=== PATIENT | female | born 1975 ===

== ENCOUNTER 2020-05-27 20:19 | Inpatient (IN) | payer OTHER, SELFPAY ==
--- NOTE | ~2020-05-27 | CT_ITS ---
EXAMINATION: CT ANGIOGRAM OF THE CHEST WITH AND WITHOUT CONTRAST (CT PULMONARY ANGIOGRAM FOR PE) CLINICAL INFORMATION: Reason for Exam high ddimer; COVID positive COMPARISON: Radiograph 05/27/2020 TECHNIQUE: Prior to contrast administration, noncontrast localization images were obtained. Subsequently, multidetector volumetric imaging was performed from the thoracic inlet to below the diaphragms following the administration of 65 mL Omnipaque 350 intravenous contrast. No contrast reaction reported Sagittal, coronal, and MIP oblique sagittal reformatted images were obtained on the CT workstation, uploaded to PACS, and reviewed. This CT examination was performed using dose optimization techniques as appropriate, variously including the following: *Automated exposure control *Adjustment of mA and/or kV according to patient size (this includes techniques or standardized protocols for targeted exams where dose is matched to indication/reason for exam; i.e. extremities or head) *Use of iterative reconstruction technique Total exam dose-length product 374 mGy-cm FINDINGS: QUALITY OF STUDY/CONTRAST BOLUS: Satisfactory. PULMONARY ARTERIES: No central or segmental pulmonary emboli. THORACIC AORTA: No aneurysm or dissection. LUNG: The central airways are patent. Multifocal consolidation seen throughout both lungs. This has diffuse patchy appearance. PLEURA: No pleural effusion or pneumothorax. MEDIASTINUM: Normal heart size. No pericardial effusion. No hilar or mediastinal lymphadenopathy. No evidence of septal bowing or right heart strain. CHEST WALL/AXILLA: No axillary or internal mammary lymphadenopathy. OSSEOUS STRUCTURES: No acute or suspicious osseous abnormality. UPPER ABDOMEN: Cholecystectomy. No reflux of contrast into the hepatic veins to suggest elevated right heart pressures. CT/CT angio chest PE protocol IMPRESSION: 1. No pulmonary embolism. 2. Multifocal airspace opacity throughout both lungs, consistent with the clinical history of Covid. VTE: negative
--- NOTE | ~2020-05-27 | XR_ITS ---
EXAMINATION: XR CHEST CLINICAL INFORMATION: Chest pain and dyspnea. Positive for COVID COMPARISON: 08/30/2016 TECHNIQUE: Frontal view of the chest was obtained. FINDINGS: New multifocal infiltrates are present in both lungs consistent with Covid pulmonary disease. The heart size is normal. No pleural effusions are seen. XR/XR chest 1V IMPRESSION: Multifocal pulmonary infiltrates consistent with multifocal pneumonia, most likely Covid 19.
[2020-05-27 20:21] VITALS: BP 101/64; PULSE 111; RESP 26; TEMP 38.8; O2SAT 95; BMI 39.6
--- NOTE | 2020-05-27 20:27 | ECG_ITS ---
Test Reason : CHEST PAIN Blood Pressure : / mmHG Vent. Rate : 104 BPM Atrial Rate : 104 BPM P-R Int : 160 ms QRS Dur : 078 ms QT Int : 318 ms P-R-T Axes : 040 059 043 degrees QTc Int : 418 ms Sinus tachycardia Low voltage QRS Borderline ECG When compared to the previous EKG of Premature ventricular complexes not present Referred By: Xavier Jorge Electronically Signed By:Brien Pinedo
[2020-05-27 20:38] VITALS: O2SAT 93
--- NOTE | 2020-05-27 20:38 | ED.SOB ---
HPI - SOB/Dyspnea General Chief Complaint: Chest Pain Stated Complaint: resp distress chest pain COVID Time Seen by Provider: 05/27/20 20:34 Source: patient Mode of arrival: ambulatory Limitations: no limitations History of Present Illness HPI Narrative: Patient with symptomatic with dry cough and shortness of breath since 05/13 tested for COVID on 05/18 and was positive for last 5 days patient has been feeling increased shortness of breath dry cough and chest tightness other family members also positive with COVID patient does have low-grade fever not able to eat much for last 3 days saturating 91%- 93% on 2 L while resting on arrival patient's blood pressure was 101/64 pulse rate 111 respiratory rate 26 and temperature of 101.9 degrees patient feels exhausted MD elicited complaint: shortness of breath and cough Onset (ago): day(s) (5) Severity: moderate Relieving factors: oxygen Related Data Allergies Allergy/AdvReac Type Severity Reaction Status Date / Time No Known Allergies Allergy Unverified 12/24/19 15:46 [No Known Allergies*] Review of Systems Review of Systems: Constitutional : No Weight loss, ++ Fever, No Chills ENT/Mouth : No sore throat, No Rhinorrhea Eyes: No Eye Pain, No Swelling Cardiovascular : No Chest Pain, no palpitations Respiratory : ++Cough, No Sputum, ++ shortness of breath Gastrointestinal : no Nausea, No Vomiting, No Diarrhea, No abdominal Pain, no black stools Genitourinary : No Dysuria, No Urinary Frequency Musculoskeletal : No joint pain, No Myalgias, No Joint Swelling Skin : No Skin Lesions, No rash Neuro : No Weakness, No Numbness, No Dizziness, No Headache Psych : No Anxiety/Panic, No Depression Heme/Lymph: No Bruising, No Lymphadenopathy Endocrine : No Polyuria, No Polydipsia All other systems reviewed and are negative PMFSH Past Medical History Medical History Hypothyroidism Social History Social History Alcohol intake: never Smoking Status: Never smoker Smoked in Last 30 Days: No Use of substances other than those prescribed or required for medical reasons: No Advance Directives: No Advance Directives Information Provided: No Physical Exam Vital Signs: Vital Signs: Last Vital Signs Temp 100 F 05/28/20 00:04 Pulse 105 H 05/28/20 01:15 Resp 24 H 05/28/20 01:15 BP 101/56 L 05/28/20 00:04 Pulse Ox 96 05/28/20 00:04 Body Mass Index 39.6 Const: General: well developed and ill appearing Nutritional Appearance: average body habitus Orientation/consciousness: patient oriented x3 HENMT: Head: Yes normocephalic and Yes atraumatic Ears: hearing grossly normal bilaterally Eyes: General: appearance normal, both eyes and all related structures Neck: Neck: Yes full ROM, Yes no lymphadenopathy and Yes no JVD Chest: Chest palpation & inspection: normal inspection of the chest and normal palpation of entire chest wall Resp: Effort & Inspection: normal respiratory effort Auscultation: crackles, rales, no rhonchi, no wheezes and diminished lung sounds Cardio: Rate: tachycardic Rhythm: regular rhythm Heart sounds: S1 normal heart sound present and S2 normal heart sound present Peripheral pulses: Peripheral pulses 2+ throughout GI: Inspection: Yes normal to inspection Palpation (GI): Soft to palpation and nontender Auscultation: normal bowel sounds : General: Yes no CVA tenderness Back/Spine/Pelvis: Back: no CVA tenderness Thoracic/Lumbar Spine: thoracic and lumbar spine normal to inspection Skin: General skin exam: no rashes or lesions noted Neuro: General: patient oriented x3 and no focal motor deficits Extrem: General: Yes normal to inspection, Yes full ROM, Yes no calf tenderness and Yes pedal edema MDM - SOB/Dyspnea MDM Narrative Medical decision making narrative: Patient with COVID-19 pneumonia with hypoxia will admit patient for supportive treatment oxygen Decadron prophylactic antibiotics Differential Diagnosis Differential diagnosis: Likely pneumonia Medical Records Attestation: I reviewed the patient's medical records. Lab Data Attestation: I reviewed the patient's lab results. Result diagrams: 05/27/20 20:45 05/27/20 20:45 Labs: Lab Results 05/27/20 05/27/20 05/27/20 Range/Units 20:45 20:45 20:45 WBC 5.6 (4.8-10.8) X10*3/uL RBC 3.28 L (4.20-5.50) X10*6/uL Hgb 8.3 L (12.0-16.0) g/dl Hct 26.7 L (37-47) % MCV 81.4 (80-98) fL MCH 25.3 L (27.0-33.0) pg MCHC 31.1 (31.0-35.0) g/dl RDW 22.7 H (11.0-16.0) % Plt Count 242 (160-400) X10*3/uL MPV 9.5 (9.4-12.3) fL Immature Gran % (Auto) 0.4 (0.0-0.4) % Neut % (Auto) 81.0 H (45-73) % Lymph % (Auto) 13.1 L (20-40) % [place] % (Auto) 5.3 (2-11) % Eos % (Auto) 0.0 (0-4) % Baso % (Auto) 0.2 (0-2) % Lymph # (Auto) 0.7 L (1.2-4.9) X10*3/uL [place] # (Auto) 0.3 (0.1-1.2) X10*3/uL Eos # (Auto) 0.0 (0.0-0.4) X10*3/uL Baso # (Auto) 0.0 (0.0-0.2) X10*3/uL Abs Immat Gran (auto) 0.02 (0.00-0.03) X10*3/uL Absolute Neuts (auto) 4.6 (2.0-8.3) X10*3/uL Absolute Nucleated RBC 0.000 (0.0-0.012) X10*3/uL Nucleated RBC % (auto) 0.0 (0.0-0.2) /100WBC PT 14.0 H (10.8-13.0) SEC INR 1.2 H (0.9-1.1) APTT 31.0 (24.1-38.0) SEC D-Dimer 320 NG/ML Sodium 139 (135-145) mmol/L Potassium 4.1 (3.3-5.1) mmol/L Chloride 104 (96-108) mmol/L Carbon Dioxide 24 (22-29) mmol/L Anion Gap 15 (12-20) BUN 9 (9-16) mg/dL Creatinine 0.76 (0.5-1.4) mg/dL Estim Creat Clear Calc 100.6 Estimated GFR > 60 Random Glucose 106 (60-115) mg/dL Lactic Acid (0.5-2.0) mmol/L Calcium 8.0 L (8.4-10.2) mg/dL Ferritin (10-250) ng/mL Lactate Dehydrogenase 427 H (122-220) U/L Troponin I High Sens (<3.5-17.0) ng/L C-Reactive Protein 15.53 H (< or = 0.50) mg/dL 05/27/20 05/27/20 05/27/20 Range/Units 20:45 20:45 20:46 WBC (4.8-10.8) X10*3/uL RBC (4.20-5.50) X10*6/uL Hgb (12.0-16.0) g/dl Hct (37-47) % MCV (80-98) fL MCH (27.0-33.0) pg MCHC (31.0-35.0) g/dl RDW (11.0-16.0) % Plt Count (160-400) X10*3/uL MPV (9.4-12.3) fL Immature Gran % (Auto) (0.0-0.4) % Neut % (Auto) (45-73) % Lymph % (Auto) (20-40) % [place] % (Auto) (2-11) % Eos % (Auto) (0-4) % Baso % (Auto) (0-2) % Lymph # (Auto) (1.2-4.9) X10*3/uL [place] # (Auto) (0.1-1.2) X10*3/uL Eos # (Auto) (0.0-0.4) X10*3/uL Baso # (Auto) (0.0-0.2) X10*3/uL Abs Immat Gran (auto) (0.00-0.03) X10*3/uL Absolute Neuts (auto) (2.0-8.3) X10*3/uL Absolute Nucleated RBC (0.0-0.012) X10*3/uL Nucleated RBC % (auto) (0.0-0.2) /100WBC PT (10.8-13.0) SEC INR (0.9-1.1) APTT (24.1-38.0) SEC D-Dimer NG/ML Sodium (135-145) mmol/L Potassium (3.3-5.1) mmol/L Chloride (96-108) mmol/L Carbon Dioxide (22-29) mmol/L Anion Gap (12-20) BUN (9-16) mg/dL Creatinine (0.5-1.4) mg/dL Estim Creat Clear Calc Estimated GFR Random Glucose (60-115) mg/dL Lactic Acid 1.1 (0.5-2.0) mmol/L Calcium (8.4-10.2) mg/dL Ferritin 121 (10-250) ng/mL Lactate Dehydrogenase (122-220) U/L Troponin I High Sens < 3.5 (<3.5-17.0) ng/L C-Reactive Protein (< or = 0.50) mg/dL ECG Data Attestation: I personally reviewed and interpreted this ECG as follows: Interpretation: Sinus tachycardia with ventricular rate 104 normal axis normal intervals no acute ST T wave changes impression no acute ischemia
[2020-05-27 20:58] LABS: MANUAL DIFF FLAG NO
[2020-05-27 21:05] LABS: Basophils Percent Auto 0.2 % (0-2); Hematocrit 26.7 % (37-47); Hemoglobin 8.3 g/dl (12.0-16.0); Imm Gran Abs Auto 0.02 X10*3/uL (0.00-0.03); Imm Gran Pct Auto 0.4 % (0.0-0.4); Lymphocytes Absolute Auto 0.7 X10*3/uL (1.2-4.9); Lymphocytes Percent Auto 13.1 % (20-40); Mean Corpuscular HGB Conc 31.1 g/dl (31.0-35.0); Mean Corpuscular Hemoglobin 25.3 pg (27.0-33.0); Mean Corpuscular Volume 81.4 fL (80-98); Mean Platelet Volume 9.5 fL (9.4-12.3); Monocytes Absolute Auto 0.3 X10*3/uL (0.1-1.2); Monocytes Percent Auto 5.3 % (2-11); Neutrophils Absolute Auto 4.6 X10*3/uL (2.0-8.3); Platelet Count 242 X10*3/uL (160-400); Red Blood Count 3.28 X10*6/uL (4.20-5.50); Red Cell Distribution Width 22.7 % (11.0-16.0); White Blood Count 5.6 X10*3/uL (4.8-10.8)
[2020-05-27 21:06] LABS: INTERNATIONAL NORM RATIO 1.2 (0.9-1.1)
[2020-05-27 21:09] LABS: D Dimer 320 NG/ML
[2020-05-27 21:24] LABS: Lactic Acid 1.1 mmol/L (0.5-2.0)
[2020-05-27 21:34] LABS: Troponin-I High Sensitivity < 3.5 ng/L (<3.5-17.0)
[2020-05-27 21:43] LABS: Anion Gap 15 (12-20); Blood Urea Nitrogen 9 mg/dL (9-16); C Reactive Protein 15.53 mg/dL (< or = 0.50); Carbon Dioxide 24 mmol/L (22-29); Chloride 104 mmol/L (96-108); Creatinine Clr Calc Pharmacy 100.6; Estimated Glomerular Filt Rate > 60; Glucose Random 106 mg/dL (60-115); Lactate Dehydrogenase 427 U/L (122-220); Potassium 4.1 mmol/L (3.3-5.1); Sodium 139 mmol/L (135-145)
[2020-05-27] MEDS: Albuterol Sulfate 90 MCG 8 GM INHALER 4 PUFF INHALE (21:59)
[2020-05-27 22:00] VITALS: BP 102/63; PULSE 106; RESP 24; O2SAT 94
[2020-05-27] MEDS: cefTRIAXone sodium 1 GM in 0.9 % Sodium Chloride 50 ML IV (22:00)
[2020-05-27 22:13] VITALS: BP 115/69; PULSE 104; RESP 24; O2SAT 93
[2020-05-27 22:28] VITALS: BP 108/65; PULSE 103; RESP 20; O2SAT 93
[2020-05-27] MEDS: Doxycycline Hyclate 100 MG in 0.9 % Sodium Chloride 250 ML 166.67 MG IV (22:40)
[2020-05-27 22:58] VITALS: BP 107/62; PULSE 108; RESP 25; O2SAT 95
[2020-05-27 23:28] LABS: Ferritin 121 ng/mL (10-250)
[2020-05-28] MEDS: 0.9 % Sodium Chloride 1,000 ML 999 ML IVCONT
[2020-05-28 00:04] VITALS: BP 101/56; PULSE 105; RESP 20; TEMP 37.7; O2SAT 96
--- NOTE | 2020-05-28 00:10 | PM.IMHP ---
History of Present Illness Date of Service: 05/28/20 Chief Complaint: Shortness of breath 44-year-old female a past medical history of hypothyroidism, anemia, GERD presented to the hospital with a chief complaint of shortness of breath. Patient reports that he our exposure to COVID-19 virus. Mentioned per before MRSA positive COVID-19. Patient denies any fever chills. Mentions he has cough denies any sputum production. Any chest pain palpitations. Denies any numbness tingling. Denies any loss of sense of smell. Denies any GI or symptoms. Review of all other systems is negative except mentioned above ER course: Per ER team patient was saturating at 91% on 2 L. Chest x-ray showed bilateral infiltrates. Noted mildly elevated D-dimer. Given ceftriaxone azithromycin and dexamethasone core admitted to the hospital for further management. [facility] Medical History Hypothyroidism Social History Alcohol intake: never Smoking Status: Never smoker Smoked in Last 30 Days: No Use of substances other than those prescribed or required for medical reasons: No Advance Directives: No Advance Directives Information Provided: No Meds Allergies Allergy/AdvReac Type Severity Reaction Status Date / Time No Known Allergies Allergy Verified 05/28/20 01:53 [No Known Allergies*] Active Medications: Current Medications Generic Name Dose Route Start Last Admin Trade Name Freq PRN Reason Stop Dose Admin Acetaminophen 650 mg 05/28/20 00:04 Acetaminophen 325 Mg Tablet PO Q6H PRN Pain, Mild (Pain Scale 1-3) Azithromycin 500 mg 05/28/20 00:15 Azithromycin 500 Mg Tablet PO Q24H BRENDAN Dexamethasone 6 mg 05/28/20 09:00 Dexamethasone 6 Mg Tablet PO DAILY BRENDAN Enoxaparin Sodium 40 mg 05/28/20 00:15 Enoxaparin Sodium 40 Mg/0.4 Ml Syringe SUBCUT Q24H BRENDAN Sodium Chloride 1,000 mls @ 999 mls/hr 05/27/20 23:30 Ns IVCONT 05/28/20 00:30 .Q1H1M BRENDAN Ceftriaxone Sodium 1 gm/ 50 mls @ 100 mls/hr 05/28/20 00:15 Sodium Chloride IV Q24H [facility] Sodium Chloride 3 ml 05/28/20 08:00 0.9 % Sodium Chloride Flush 3 Ml Syringe IVFLUSH QSHIFT [facility] Home Medications Medication Instructions Recorded Confirmed Last Taken Type levothyroxine 1 tab PO DAILY 05/28/20 05/28/20 05/27/20 History Physical Exam Vital Signs and Narrative: Vital Signs: Last Vital Signs Temp 101.9 F H 05/27/20 20:21 Pulse 108 H 05/27/20 22:58 Resp 25 H 05/27/20 22:58 BP 107/62 05/27/20 22:58 Pulse Ox 95 05/27/20 22:58 Body Mass Index 39.6 Gen: Appears be in no acute distress HEENT: NCAT, Moist mucosa. Pulmonary: Course breath sounds, fair air entry CVS: Normal S1-S2 Abdomen: BS+, Soft, Nontender Extremities: Warm well perfused Neuro: Alert and awake. Results Labs CBC and Chem 7: 05/27/20 20:45 05/27/20 20:45 Labs: Laboratory Results - last 24 hr 05/27/20 05/27/20 05/27/20 20:45 20:45 20:45 MCV 81.4 MCH 25.3 L MCHC 31.1 RDW 22.7 H Plt Count 242 MPV 9.5 Immature Gran % (Auto) 0.4 Neut % (Auto) 81.0 H Lymph % (Auto) 13.1 L [place] % (Auto) 5.3 Eos % (Auto) 0.0 Baso % (Auto) 0.2 Lymph # (Auto) 0.7 L [place] # (Auto) 0.3 Eos # (Auto) 0.0 Baso # (Auto) 0.0 Abs Immat Gran (auto) 0.02 Absolute Neuts (auto) 4.6 Absolute Nucleated RBC 0.000 Nucleated RBC % (auto) 0.0 PT 14.0 H INR 1.2 H APTT 31.0 D-Dimer 320 Anion Gap 15 Estim Creat Clear Calc 100.6 Estimated GFR > 60 Random Glucose 106 Lactic Acid Calcium 8.0 L Ferritin Lactate Dehydrogenase 427 H Troponin I High Sens C-Reactive Protein 15.53 H 05/27/20 05/27/20 05/27/20 20:45 20:45 20:46 MCV MCH MCHC RDW Plt Count MPV Immature Gran % (Auto) Neut % (Auto) Lymph % (Auto) [place] % (Auto) Eos % (Auto) Baso % (Auto) Lymph # (Auto) [place] # (Auto) Eos # (Auto) Baso # (Auto) Abs Immat Gran (auto) Absolute Neuts (auto) Absolute Nucleated RBC Nucleated RBC % (auto) PT INR APTT D-Dimer Anion Gap Estim Creat Clear Calc Estimated GFR Random Glucose Lactic Acid 1.1 Calcium Ferritin 121 Lactate Dehydrogenase Troponin I High Sens < 3.5 C-Reactive Protein Imaging Radiologist's Impressions: Impressions Chest X-Ray 05/27/20 20:27 IMPRESSION: Multifocal pulmonary infiltrates consistent with multifocal pneumonia, most likely Covid 19. Assessment and Plan (1) Pneumonia due to COVID-19 virus: Status: Acute At 44-year-old female with a past medical history of hypothyroidism, GERD, anemia presented to the hospital with a chief complaint of shortness of breath. Patient has exposed to COVID-19.; noted to have COVID-19 pneumonia. Admitted to the hospital for further management. COVID-19 pneumonia: Patient currently saturating 90-92% on 2 L of oxygen. Not in distress. Continue supplemental oxygen. Continue ceftriaxone, azithromycin, dexamethasone. Id consult. Noted elevated D-dimer-CT PE pending. For all other chronic conditions, home medications will be continued once reconciled. DVT prophylaxis: Lovenox Code status: Full code
[2020-05-28] MEDS: Azithromycin 500 MG TABLET PO (00:56)
[2020-05-28 01:15] VITALS: PULSE 105; RESP 24
[2020-05-28 01:17] LABS: COVID-19 Test Positive (Negative)
[2020-05-28] MEDS: iohexoL 350 MG/ML 100 ML INFUS..BTL 65 ML IV (02:36)
--- NOTE | 2020-05-28 06:44 | PC.NURSE ---
PATIENT ARRIVED TO ED COVID+, TESTED ELSEWHERE LAST WEEK. PATIENT MEDICATED ORDERED, AND AMBULATES WITH STEADY GAIT. PATIENT ABLE TO MAKE NEEDS KNOWN TO THIS RN. SLEEPING AT THIS TIME. WILL CONTINUE TO MONITOR.
[2020-05-28 07:24] LABS: Hematocrit 26.7 % (37-47); Hemoglobin 8.1 g/dl (12.0-16.0); Imm Gran Abs Auto 0.01 X10*3/uL (0.00-0.03); Imm Gran Pct Auto 0.3 % (0.0-0.4); Lymphocytes Absolute Auto 0.3 X10*3/uL (1.2-4.9); Lymphocytes Percent Auto 8.7 % (20-40); MANUAL DIFF FLAG SCAN; Mean Corpuscular HGB Conc 30.3 g/dl (31.0-35.0); Mean Corpuscular Hemoglobin 25.2 pg (27.0-33.0); Mean Corpuscular Volume 82.9 fL (80-98); Mean Platelet Volume 9.5 fL (9.4-12.3); Monocytes Absolute Auto 0.1 X10*3/uL (0.1-1.2); Monocytes Percent Auto 3.3 % (2-11); Neutrophils Absolute Auto 3.4 X10*3/uL (2.0-8.3); Neutrophils Percent Auto 87.7 % (45-73); Platelet Count 236 X10*3/uL (160-400); Red Blood Count 3.22 X10*6/uL (4.20-5.50); Red Cell Distribution Width 22.7 % (11.0-16.0); SCAN SMEAR FLAG 1; White Blood Count 3.9 X10*3/uL (4.8-10.8)
[2020-05-28 07:49] LABS: Anion Gap 13 (12-20); Blood Urea Nitrogen 9 mg/dL (9-16); Calcium 7.8 mg/dL (8.4-10.2); Carbon Dioxide 25 mmol/L (22-29); Chloride 108 mmol/L (96-108); Creatinine Clr Calc Pharmacy 114.1; Estimated Glomerular Filt Rate > 60; Glucose Random 146 mg/dL (60-115); Magnesium 2.1 mg/dL (1.6-2.6); Potassium 4.1 mmol/L (3.3-5.1); Sodium 142 mmol/L (135-145)
[2020-05-28 07:56] LABS: SLIDE REVIEW VERIFIED
[2020-05-28] MEDS: dexAMETHasone 6 MG TABLET PO (08:24)
[2020-05-28] MEDS: Enoxaparin Sodium 40 MG/0.4 ML SYRINGE SUBCUT (08:24)
[2020-05-28] MEDS: Levothyroxine Sodium 112 MCG TABLET PO (08:24)
[2020-05-28] MEDS: Levothyroxine Sodium 25 MCG TABLET PO (08:24)
[2020-05-28] MEDS: 0.9 % Sodium Chloride Flush 3 ML SYRINGE IVFLUSH ×2 (08:25→18:14)
[2020-05-28 09:21] LABS: Alanine Aminotransferase 50 U/L (0-31); Albumin Level 3.8 g/dL (3.5-5.0); Alkaline Phosphatase 95 U/L (39-117); Aspartate Amino Transferase 43 U/L (5-31); Bilirubin Direct < 0.2 mg/dL (0.0-0.5); Bilirubin Total 0.3 mg/dL (0.0-1.0); Total Protein 6.9 g/dL (6.5-8.0)
[2020-05-28 09:45] LABS: Procalcitonin 0.26 ng/mL
--- NOTE | 2020-05-28 10:52 | HO.PM.IMPN ---
Subjective Subjective Date of Service: 05/28/20 Interval History: seen and examined this AM in the ED feels tired reports her test returned positive on 05/18 (tested several days before that) ROS General - +fevers; fatigue Cardiovascular - no chest pain Respiratory - +sob, + cough Abdominal- no abdominal pain, nausea, vomiting, diarrhea Physical Exam Vital Signs: Vital Signs: Last Vital Signs Temp 100 F 05/28/20 00:04 Pulse 105 H 05/28/20 01:15 Resp 24 H 05/28/20 01:15 BP 101/56 L 05/28/20 00:04 Pulse Ox 96 05/28/20 00:04 Body Mass Index 39.6 Const: Other: General - no acute distress, appears comfortable Cardiovascular - regular rate and rhythm, S1-S2 Lungs - dim, no distress at rest; tachypnea with exertion Abdomen - soft, nontender, no rebound or guarding Extremities - no edema bilaterally Neuro - awake and alert, no focal deficits Objective Data Current Medications Generic Name Dose Route Start Last Admin Trade Name Earlq PRN Reason Stop Dose Admin Acetaminophen 650 mg 05/28/20 00:04 Acetaminophen 325 Mg Tablet PO Q6H PRN Pain, Mild (Pain Scale 1-3) Azithromycin 500 mg 05/28/20 01:00 05/28/20 00:56 Azithromycin 500 Mg Tablet PO 500 mg Q24H BRENDAN Administration Dexamethasone 6 mg 05/28/20 09:00 05/28/20 08:24 Dexamethasone 6 Mg Tablet PO 6 mg DAILY BRENDAN Administration Enoxaparin Sodium 40 mg 05/28/20 09:00 05/28/20 08:24 Enoxaparin Sodium 40 Mg/0.4 Ml Syringe SUBCUT 40 mg Q24H BRENDAN Administration Ceftriaxone Sodium 1 gm/ 50 mls @ 100 mls/hr 05/28/20 21:00 Sodium Chloride IV Q24H BRENDAN Levothyroxine Sodium 112 mcg 05/28/20 06:32 05/28/20 08:24 Levothyroxine Sodium 112 Mcg Tablet PO 112 mcg DAILY@0600 BRENDAN Administration Levothyroxine Sodium 25 mcg 05/28/20 06:45 05/28/20 08:24 Levothyroxine Sodium 25 Mcg Tablet PO 25 mcg DAILY@0600 BRENDAN Administration Sodium Chloride 3 ml 05/28/20 08:00 05/28/20 08:25 0.9 % Sodium Chloride Flush 3 Ml Syringe IVFLUSH 3 ml QSHIFT BRENDAN Administration Labs CBC & Chem 7: 05/28/20 06:58 05/28/20 06:58 Assessment and Plan (1) Pneumonia due to COVID-19 virus: Status: Acute Assessment and Plan: This is a 44 yo F with a PMH of hypothyroid who reports she tested positive for covid on 05/28/2020 (symptoms about 4-5 days prior to this) and now presents with worsening respiratory symptoms. 1. COVID 19 leading to viral sepsis, POA met sepsis criteria with tachycardia + fevers + tachypnea On 2L; no dcumented saturations below 90 Decadron 6mg IV daily Empiric Doxycycline ID in put 2. Hypothyroidism synthroid Full Code DVT pptx, Lovenox
[2020-05-28] MEDS: Doxycycline Hyclate 100 MG in 0.9 % Sodium Chloride 250 ML 166.67 MG IV (11:48)
[2020-05-28] MEDS: Acetaminophen 325 MG TABLET 650 MG PO (11:49)
[2020-05-28 14:11] VITALS: BP 118/74; PULSE 83; RESP 18; TEMP 37; O2SAT 94
--- NOTE | 2020-05-28 16:54 | PC.NURSE ---
Pt alert, rr even, speaking in full sentences. Skin is pwdi, and she is in nad. She has been ambulating to and from BR without difficulty, and 02 sats remaining in the high 90's. Pt offers no complaints at this time. Dr Kerr made aware pt condition.
[2020-05-28 18:12] VITALS: BP 121/76; PULSE 87; RESP 16; TEMP 37.2; O2SAT 87
[2020-05-28 18:13] VITALS: O2SAT 96
--- NOTE | 2020-05-28 18:17 | PC.NURSE ---
Pt reports substernal CP described as sharp radiating to back, reproducible, worsening with cough. Pts vs wnl, skin w/p/d, rr even and unlabored, no apparent distress noted. Dr. Kerr aware pt status and requested additional PRNS.
[2020-05-28] MEDS: oxyCODONE HCl Immed Release 5 MG TABLET PO (18:45)
[2020-05-28 22:00] VITALS: BP 93/49; PULSE 83; RESP 22; O2SAT 91
--- NOTE | 2020-05-28 22:50 | ED_ITS ---
HPI - Chest Pain General Chief Complaint: Chest Pain Stated Complaint: resp distress chest pain COVID Time Seen by Provider: 05/27/20 20:34 Source: patient Mode of arrival: ambulatory Limitations: no limitations Related Data Home Medications Medication Instructions Recorded Confirmed levothyroxine 1 tab PO DAILY 05/28/20 05/28/20 Allergies Allergy/AdvReac Type Severity Reaction Status Date / Time No Known Allergies Allergy Verified 05/28/20 01:53 [No Known Allergies*] [facility] Past Medical History Medical History (Updated 05/29/20 @ 18:21 by John Monroy RN) Gallbladder & bile duct stone with obstruction Hypothyroidism Kidney calculi Surgical History (Updated 05/29/20 @ 18:21 by John Monroy RN) H/O breast biopsy Social History Social History Household Members: Spouse and Children Housing: House Do you presently have visiting nurse or other home services: No Alcohol intake: never Smoking Status: Never smoker Smoked in Last 30 Days: No Patient Interested in Nicotine Replacement: No Patient Given Instructions on How to Stop Smoking: No Second Hand Smoke Exposure: No Use of substances other than those prescribed or required for medical reasons: No Currently Displaying Signs/Symptoms of Drug Intoxication Withdrawal: No Have you been hit, kicked, punched, or otherwise hurt by someone within the past year? If so, by whom?: No Do you feel safe in your current relationship?: Yes Is there a partner from a previous relationship who is making you feel unsafe now?: No Are you made to feel afraid or neglected: No Advance Directives: No Advance Directives Information Provided: No Do you have thoughts of harming others: None Do you have a plan to hurt others: No Plan Recently lost weight without trying: No Physical Exam Vital Signs: Vital Signs: Last Vital Signs Temp 98 F 05/30/20 00:00 Pulse 65 05/30/20 00:00 Resp 20 05/30/20 00:00 BP 118/74 05/30/20 00:00 Pulse Ox 97 05/30/20 00:00 Body Mass Index 39.6 MDM - Chest Pain Lab Data Result diagrams: 05/28/20 06:58 05/28/20 06:58 Labs: Lab Results 05/27/20 05/27/20 05/27/20 Range/Units 20:45 20:45 20:45 WBC 5.6 (4.8-10.8) X10*3/uL RBC 3.28 L (4.20-5.50) X10*6/uL Hgb 8.3 L (12.0-16.0) g/dl Hct 26.7 L (37-47) % MCV 81.4 (80-98) fL MCH 25.3 L (27.0-33.0) pg MCHC 31.1 (31.0-35.0) g/dl RDW 22.7 H (11.0-16.0) % Plt Count 242 (160-400) X10*3/uL MPV 9.5 (9.4-12.3) fL Immature Gran % (Auto) 0.4 (0.0-0.4) % Neut % (Auto) 81.0 H (45-73) % Lymph % (Auto) 13.1 L (20-40) % [place] % (Auto) 5.3 (2-11) % Eos % (Auto) 0.0 (0-4) % Baso % (Auto) 0.2 (0-2) % Lymph # (Auto) 0.7 L (1.2-4.9) X10*3/uL [place] # (Auto) 0.3 (0.1-1.2) X10*3/uL Eos # (Auto) 0.0 (0.0-0.4) X10*3/uL Baso # (Auto) 0.0 (0.0-0.2) X10*3/uL Abs Immat Gran (auto) 0.02 (0.00-0.03) X10*3/uL Absolute Neuts (auto) 4.6 (2.0-8.3) X10*3/uL Absolute Nucleated RBC 0.000 (0.0-0.012) X10*3/uL Nucleated RBC % (auto) 0.0 (0.0-0.2) /100WBC PT 14.0 H (10.8-13.0) SEC INR 1.2 H (0.9-1.1) APTT 31.0 (24.1-38.0) SEC D-Dimer 320 NG/ML Sodium 139 (135-145) mmol/L Potassium 4.1 (3.3-5.1) mmol/L Chloride 104 (96-108) mmol/L Carbon Dioxide 24 (22-29) mmol/L Anion Gap 15 (12-20) BUN 9 (9-16) mg/dL Creatinine 0.76 (0.5-1.4) mg/dL Estim Creat Clear Calc 100.6 Estimated GFR > 60 Random Glucose 106 (60-115) mg/dL Lactic Acid (0.5-2.0) mmol/L Calcium 8.0 L (8.4-10.2) mg/dL Ferritin (10-250) ng/mL Lactate Dehydrogenase 427 H (122-220) U/L Troponin I High Sens (<3.5-17.0) ng/L C-Reactive Protein 15.53 H (< or = 0.50) mg/dL 05/27/20 05/27/20 05/27/20 Range/Units 20:45 20:45 20:46 WBC (4.8-10.8) X10*3/uL RBC (4.20-5.50) X10*6/uL Hgb (12.0-16.0) g/dl Hct (37-47) % MCV (80-98) fL MCH (27.0-33.0) pg MCHC (31.0-35.0) g/dl RDW (11.0-16.0) % Plt Count (160-400) X10*3/uL MPV (9.4-12.3) fL Immature Gran % (Auto) (0.0-0.4) % Neut % (Auto) (45-73) % Lymph % (Auto) (20-40) % [place] % (Auto) (2-11) % Eos % (Auto) (0-4) % Baso % (Auto) (0-2) % Lymph # (Auto) (1.2-4.9) X10*3/uL [place] # (Auto) (0.1-1.2) X10*3/uL Eos # (Auto) (0.0-0.4) X10*3/uL Baso # (Auto) (0.0-0.2) X10*3/uL Abs Immat Gran (auto) (0.00-0.03) X10*3/uL Absolute Neuts (auto) (2.0-8.3) X10*3/uL Absolute Nucleated RBC (0.0-0.012) X10*3/uL Nucleated RBC % (auto) (0.0-0.2) /100WBC PT (10.8-13.0) SEC INR (0.9-1.1) APTT (24.1-38.0) SEC D-Dimer NG/ML Sodium (135-145) mmol/L Potassium (3.3-5.1) mmol/L Chloride (96-108) mmol/L Carbon Dioxide (22-29) mmol/L Anion Gap (12-20) BUN (9-16) mg/dL Creatinine (0.5-1.4) mg/dL Estim Creat Clear Calc Estimated GFR Random Glucose (60-115) mg/dL Lactic Acid 1.1 (0.5-2.0) mmol/L Calcium (8.4-10.2) mg/dL Ferritin 121 (10-250) ng/mL Lactate Dehydrogenase (122-220) U/L Troponin I High Sens < 3.5 (<3.5-17.0) ng/L C-Reactive Protein (< or = 0.50) mg/dL Discharge Plan Discharge Clinical Impression: Pneumonia due to COVID-19 virus Patient Disposition: Admitted As Inpatient Interventions: Admission Worksheet (ED) Last Done: 05/29/20 17:53 Discharge Date/Time: 05/29/20 17:54
[2020-05-29] MEDS: 0.9 % Sodium Chloride Flush 3 ML SYRINGE IVFLUSH ×3 (00:59→18:26)
[2020-05-29] MEDS: Doxycycline Hyclate 100 MG in 0.9 % Sodium Chloride 250 ML 166.67 MG IV ×3 (00:59→22:26)
--- NOTE | 2020-05-29 01:03 | PC.NURSE ---
PT MEDICATED PER MAR BY KRISTA RN, VSS, PO FLUIDS GIVEN. OFFERS NO COMPLAINTS AT THIS TIME.
--- NOTE | 2020-05-29 03:39 | PC.NURSE ---
REPORT TAKEN FROM ALANA RN, PT RESTING IN BED SKIN PWD RESPIRATIONS EVEN UNLABORED. AWAITING BED ASSIGNMENT FOR ADMISSION. OFFERS NO COMPLAINTS AT THIS TIME. AWARE OF PLAN OF CARE.
[2020-05-29] MEDS: Levothyroxine Sodium 25 MCG TABLET PO (06:14)
[2020-05-29] MEDS: Levothyroxine Sodium 112 MCG TABLET PO (06:14)
[2020-05-29 06:15] VITALS: BP 122/68; PULSE 75; RESP 16; TEMP 37; O2SAT 95
--- NOTE | 2020-05-29 06:18 | PC.NURSE ---
PT MEDICATED PER JUN, AMBULATED TO BATHROOM, SOB WITH EXERTION. HOARSE COUGH NOTED. IMPROVED WITH 3L O2 NC AND REST. OTHER VSS, AFEBRILE. AWAITING BED ASSIGNMENT FOR ADMISSION, AWARE OF PLAN OF CARE.
[2020-05-29] MEDS: Enoxaparin Sodium 40 MG/0.4 ML SYRINGE SUBCUT (09:37)
[2020-05-29] MEDS: dexAMETHasone sod phosphate 4 MG/ML VIAL 6 MG IVPUSH (09:37)
--- NOTE | 2020-05-29 14:34 | HO.PM.IMPN ---
Subjective Subjective Date of Service: 05/29/20 Interval History: seen and examined this AM in the ED feels better, asking when shes going to go home ROS General - +fevers; fatigue Cardiovascular - no chest pain Respiratory - +sob, + cough Abdominal- no abdominal pain, nausea, vomiting, diarrhea Physical Exam Vital Signs: Vital Signs: Last Vital Signs Temp 98.6 F 05/29/20 06:15 Pulse 75 05/29/20 06:15 Resp 16 05/29/20 06:15 BP 122/68 05/29/20 06:15 Pulse Ox 95 05/29/20 06:15 Body Mass Index 39.6 Const: Other: General - no acute distress, appears comfortable Cardiovascular - regular rate and rhythm, S1-S2 Lungs - dim, no distress at rest; tachypnea with exertion Abdomen - soft, nontender, no rebound or guarding Extremities - no edema bilaterally Neuro - awake and alert, no focal deficits Objective Data Current Medications Generic Name Dose Route Start Last Admin Trade Name Freq PRN Reason Stop Dose Admin Acetaminophen 650 mg 05/28/20 00:04 05/28/20 11:49 Acetaminophen 325 Mg Tablet PO 650 mg Q6H PRN Administration Pain, Mild (Pain Scale 1-3) Dexamethasone Sodium Phosphate 6 mg 05/29/20 09:00 05/29/20 09:37 Dexamethasone Sod Phosphate 4 Mg/Ml Vial IVPUSH 06/05/20 09:01 6 mg DAILY BRENDAN Administration Enoxaparin Sodium 40 mg 05/28/20 09:00 05/29/20 09:37 Enoxaparin Sodium 40 Mg/0.4 Ml Syringe SUBCUT 40 mg Q24H BRENDAN Administration Doxycycline Hyclate 100 mg/ 250 mls @ 166.67 mls/hr 05/28/20 11:00 05/29/20 11:56 Sodium Chloride IV 166.67 mls/hr Q12H BRENDAN Administration Levothyroxine Sodium 112 mcg 05/28/20 06:32 05/29/20 06:14 Levothyroxine Sodium 112 Mcg Tablet PO 112 mcg DAILY@0600 BRENDAN Administration Levothyroxine Sodium 25 mcg 05/28/20 06:45 05/29/20 06:14 Levothyroxine Sodium 25 Mcg Tablet PO 25 mcg DAILY@0600 BRENDAN Administration Oxycodone HCl 5 mg 05/28/20 18:24 05/28/20 18:45 Oxycodone Hcl Immed Release 5 Mg Tablet PO 5 mg Q6H PRN Administration Pain, Severe (Pain Scale 7-10) Sodium Chloride 3 ml 05/28/20 08:00 05/29/20 09:37 0.9 % Sodium Chloride Flush 3 Ml Syringe IVFLUSH 3 ml QSHIFT BRENDAN Administration Labs CBC & Chem 7: 05/28/20 06:58 05/28/20 06:58 Microbiology Microbiology Results: Microbiology 05/27/20 20:45 Blood - Venous Blood Culture - Preliminary No growth after 24 hours. 05/27/20 20:45 Blood - Venous Blood Culture - Preliminary No growth after 24 hours. Assessment and Plan (1) Pneumonia due to COVID-19 virus: Status: Acute Assessment and Plan: This is a 44 yo F with a PMH of hypothyroid who reports she tested positive for covid on 05/28/2020 (symptoms about 4-5 days prior to this) and now presents with worsening respiratory symptoms. 1. COVID 19 leading to viral sepsis, POA met sepsis criteria with tachycardia + fevers + tachypnea sepsis resolving desaturating during sleep -- has undiagnosed mary. (reports has sleep study scheduled coming up) Decadron 6mg IV daily day #2 Empiric Doxycycline 2. Hypothyroidism synthroid Full Code DVT pptx, Lovenox dispo: home next 24-48 hours if remains off Oxygen.
[2020-05-29 16:56] VITALS: BP 127/71; PULSE 90; RESP 18; TEMP 36.1; O2SAT 94
[2020-05-29 16:59] VITALS: BP 109/66; PULSE 95; RESP 14; TEMP 37.3; O2SAT 88
[2020-05-29 18:25] VITALS: BMI 37.1
[2020-05-29 18:32] VITALS: PULSE 90; O2SAT 95
[2020-05-29 20:00] VITALS: BP 117/62; PULSE 82; RESP 18; TEMP 36.2; O2SAT 98
[2020-05-30] VITALS: BP 118/74; PULSE 65; RESP 20; TEMP 36.6; O2SAT 97
[2020-05-30] MEDS: 0.9 % Sodium Chloride Flush 3 ML SYRINGE IVFLUSH ×2 (00:19→09:11)
[2020-05-30 03:24] LABS: SARS COV2 IgG Positive (Negative)
[2020-05-30 04:00] VITALS: BP 98/52; PULSE 72; RESP 20; TEMP 35.9; O2SAT 94
[2020-05-30] MEDS: Levothyroxine Sodium 112 MCG TABLET PO (05:15)
[2020-05-30] MEDS: Levothyroxine Sodium 25 MCG TABLET PO (05:15)
[2020-05-30 07:54] VITALS: BP 99/55; PULSE 67; RESP 19; TEMP 36.6; O2SAT 93
[2020-05-30 08:56] LABS: Hematocrit 25.9 % (37-47); Hemoglobin 7.9 g/dl (12.0-16.0); Mean Corpuscular HGB Conc 30.5 g/dl (31.0-35.0); Mean Corpuscular Hemoglobin 25.3 pg (27.0-33.0); Mean Platelet Volume 9.6 fL (9.4-12.3); Platelet Count 350 X10*3/uL (160-400); Red Blood Count 3.12 X10*6/uL (4.20-5.50); Red Cell Distribution Width 22.2 % (11.0-16.0); White Blood Count 7.2 X10*3/uL (4.8-10.8)
[2020-05-30] MEDS: Enoxaparin Sodium 40 MG/0.4 ML SYRINGE SUBCUT (09:11)
[2020-05-30] MEDS: dexAMETHasone sod phosphate 4 MG/ML VIAL 6 MG IVPUSH (09:11)
[2020-05-30 09:17] LABS: Anion Gap 14 (12-20); Blood Urea Nitrogen 23 mg/dL (9-16); Calcium 8.2 mg/dL (8.4-10.2); Carbon Dioxide 23 mmol/L (22-29); Chloride 111 mmol/L (96-108); Creatinine Clr Calc Pharmacy 108.4; Estimated Glomerular Filt Rate > 60; Glucose Random 96 mg/dL (60-115); Potassium 4.7 mmol/L (3.3-5.1); Sodium 143 mmol/L (135-145)
[2020-05-30] MEDS: Doxycycline Hyclate 100 MG in 0.9 % Sodium Chloride 250 ML 166.67 MG IV (10:51)
[2020-05-30] MEDS: Magnesium Hydrox/Alum Hydrox 30 ML ORAL.SUSP PO (11:59)
[2020-05-30 12:00] VITALS: BP 117/73; PULSE 75; RESP 20; TEMP 35.9; O2SAT 95
[2020-05-30 13:13] VITALS: BMI 37.1
[2020-05-30 13:57] VITALS: PULSE 86; PULSE 88; O2SAT 91; O2SAT 95
--- NOTE | 2020-05-30 14:24 | PM.DS ---
DS: Providers Provider Date of Service: 05/30/20 Date of admission: 05/28/20 00:04 Primary care physician: Unknown Physician Consults: 05/28/20 00:04 Consult to Infectious Diseases Routine Consulting Provider: Lisa Georges Reason for consultation: covid PNA DS: Diagnosis Discharge Diagnosis (1) Pneumonia due to COVID-19 virus: Status: Acute (2) Acute respiratory failure with hypoxia: Status: Acute (3) Hypothyroidism: Status: Acute DS: Medications Discharge Medications Home Medications: Home Medications Medication Instructions Recorded Confirmed levothyroxine 1 tab PO DAILY 05/28/20 05/28/20 Previous Rx's Medication Instructions Recorded dexamethasone [Decadron] 8 mg PO DAILY #14 tab 05/30/20 doxycycline hyclate 100 mg PO BID #14 tab 05/30/20 DS: Summary Hospital Course Hospital Course: Patient was admitted for COVID-19 and was started on IV steroids, doxycycline and supplemental oxygen. She was noted to be hypoxic, most notably during sleep. She was treated with 3 days of Decadron with significant resolution of her symptoms. She was no longer hypoxic and was tested for home O2 for which she did not qualify. She will be discharged home to complete a course of 10 days of steroids for her COVID. She will also be prescribed a 7 day course of doxycycline for possible bacterial component. She has been urged to follow-up with her outpatient providers and to complete a sleep study when possible. Time Spent with Patient Time attestation: Total time spent providing and/or coordinating discharge services: Discharge coordination time: Greater than 30 minutes Physical Exam Vital Signs: Vital Signs: Last Vital Signs Temp 96.7 F L 05/30/20 12:00 Pulse 75 05/30/20 12:00 Resp 20 05/30/20 12:00 BP 117/73 05/30/20 12:00 Pulse Ox 95 05/30/20 12:00 Body Mass Index 37.1 Const: Other: General - no acute distress, appears comfortable Cardiovascular - regular rate and rhythm, S1-S2 Lungs - clear, no distress, 95 on RA Abdomen - soft, nontender, no rebound or guarding Extremities - no edema bilaterally Neuro - awake and alert, no focal deficits DS: Data Data Completed and Pending Labs on day of discharge: Laboratory Results - last 24 hr 05/29/20 05/30/20 05/30/20 06:40 08:24 08:24 WBC 7.2 RBC 3.12 L Hgb 7.9 L Hct 25.9 L MCV 83.0 MCH 25.3 L MCHC 30.5 L RDW 22.2 H Plt Count 350 D MPV 9.6 Absolute Nucleated RBC 0.000 Nucleated RBC % (auto) 0.0 Sodium 143 Potassium 4.7 Chloride 111 H Carbon Dioxide 23 Anion Gap 14 BUN 23 H D Creatinine 0.68 Estim Creat Clear Calc 108.4 Estimated GFR > 60 Random Glucose 96 Calcium 8.2 L SARS-CoV-2 IgG Ab Positive Preliminary micro results at discharge 05/27/20 20:45 Blood Culture - Preliminary Blood - Venous No growth after 48 hours. 05/27/20 20:45 Blood Culture - Preliminary Blood - Venous No growth after 48 hours. Discharge Plan Discharge Patient Disposition: Home, Self-Care Referrals: Physician,Unknown [Primary Care Provider] - Discharge Medications: New dexamethasone [Decadron] 4 mg tablet 8 mg PO DAILY Qty: 14 RF: 0 doxycycline hyclate 100 mg tablet 100 mg PO BID Qty: 14 RF: 0 Continued levothyroxine 137 mcg tablet 1 tab PO DAILY RF: 0 Discharge Orders: Discharge Order (Routine); Ordered 05/30/20 Ordered By: Ganga Kerr Diet: advance to usual diet Activity on Discharge: As tolerated Stand Alone Forms: Patient Portal Discharge page Care Plan Goals: To stay healthy and out of the hospital. Health Concerns: COVID Probable Sleep Apnea Plan of Treatment: COVID - finish 7 more days of decadron and doxycycline Probable Sleep Apnea - follow up with your doctors for sleep study.
== END 2020-05-30 15:15 | disposition home or self-care (01) | DRG 720 ==
LOC: HO.ED 21:19 → HO.EDOVER 05-28 00:45 → HO.IMC 05-29 16:40
PROVIDERS: Admitting Provider Hospitalist; Emergency Provider Internal Medicine; Visit Provider Family Medicine
DX: A41.89 Other specified sepsis (principal); U07.1 COVID-19; J96.01 Acute respiratory failure with hypoxia; J12.82 Pneumonia due to coronavirus disease 2019; K21.9 Gastro-esophageal reflux disease without esophagitis; E03.9 Hypothyroidism, unspecified; Z79.890 Hormone replacement therapy; Z79.899 Other long term (current) drug therapy
CPT/HCPCS: 36415; 71045; 71275; 80048; 80076; 82728; 83605; 83615; 83735; 84145; 84484; 85025; 85027; 85379; 85610; 85730; 86140; 86769; 87040; 87635; 93005; 96361; 96365; 96375; 99285; J0696; J1100; J1650; J8540; Q9967

== ENCOUNTER 2023-05-14 09:03 | Emergency (ER) | payer OTHER, SELFPAY ==
--- NOTE | ~2023-05-14 | XR_ITS ---
EXAMINATION: XR CHEST CLINICAL INFORMATION: Cough COMPARISON: Chest 05/27/2020 TECHNIQUE: 2 views of the chest were obtained. 9:25 AM FINDINGS: The lungs are well expanded. No focal consolidation. Central peribronchial thickening is noted and can be seen with bronchitis. No pleural effusion. No significant abnormality is noted involving the heart, mediastinum, bony thorax or soft tissues. XR/XR chest 2V IMPRESSION: 1. No pneumonia. 2. Findings suggestive of bronchitis.
[2023-05-14 09:10] VITALS: BP 131/69; PULSE 129; RESP 20; TEMP 38.4; O2SAT 93; BMI 39.0
[2023-05-14] MEDS: Acetaminophen 325 MG TABLET 650 MG PO (09:21)
[2023-05-14 09:40] LABS: IDNOW Serial# 08D9AD1C; Influenza A Positive (Negative); Influenza B2 Negative (Negative)
[2023-05-14 09:42] LABS: COVID-19 Test Negative (Negative); IDNOW Serial# 152EDE1D
--- NOTE | 2023-05-14 11:27 | ED_ITS ---
HPI - URI/Sore Throat General Chief Complaint: Upper Respiratory Symptoms Stated Complaint: Fever Etc Time Seen by Provider: 05/14/23 11:25 Source: patient and family () Mode of arrival: ambulatory Limitations: no limitations History of Present Illness HPI Narrative: 47 year old female with pmhx significant for hypothyroidism presents to the ED today for evaluation of fevers, body aches, headaches and cough x3 days. Endorses one episode of posttussive emesis yesterday. Denies sputum production. TMAX at home 103F this morning. Endorses taking tylenol, last dose last night. Reports daughter at home sick with same symptoms. Denies ear pain, sore throat, chest pain, SOB or dyspnea, rashes, abd pain, hematemesis, diarrhea, LE pain/ swelling. Denies known sick contacts. Denies recent travel or long car rides. Related Data Home Medications Medication Instructions Recorded Confirmed levothyroxine 137 mcg tablet 1 tab PO DAILY 05/28/20 05/28/20 Previous Rx's Medication Instructions Recorded dexamethasone 4 mg tablet 8 mg (2 x 4 mg) PO DAILY #14 tabs 05/30/20 (Decadron) doxycycline hyclate 100 mg tablet 100 mg PO BID #14 tabs 05/30/20 azithromycin 250 mg tablet See Rx Instructions PO .COMPLEX #6 05/14/23 tabs benzonatate 100 mg capsule 100 mg PO BID PRN cough #10 caps 05/14/23 prednisone 20 mg tablet 20 mg PO DAILY 5 days #5 tabs 05/14/23 Allergies Allergy/AdvReac Type Severity Reaction Status Date / Time No Known Allergies Allergy Verified 05/14/23 09:13 [No Known Allergies*] Review of Systems Review of Systems: Constitutional: No fever, chills, fatigue, night sweats, weight changes ENT/Mouth: No ear pain, hearing loss, nasal congestion, sinus pain, rhinorrhea Eyes: No eye pain, swelling, redness, vision changes, discharge Cardio: No chest pain, palpitations, MERCADO, orthopnea, peripheral edema Pulm: No SOB, +cough, No sputum, wheezing, dyspnea, hemoptysis GI: No nausea, vomiting, hematemesis, abdominal pain, diarrhea, constipation, hematochezia, melena : No irregular bleeding, dysuria, frequency, urgency, hesitancy, hematuria, flank pain MSK: No back pain, neck pain, joint pain, +myalgias Skin: No lesions, rashes Neuro: No weakness, numbness, paresthesias, LOC, dizziness, +headache All other systems reviewed and are negative. [facility] Past Medical History Attestation statement: The following information was validated with the patient. 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 Hypothyroidism Surgical History H/O breast biopsy Social History Social History Household Members: Spouse and Children Housing: House Do you presently have visiting nurse or other home services: No Alcohol intake: never Second Hand Smoke Exposure: No Advance Directives: No Advance Directives Information Provided: No Physical Exam Vital Signs: Vital Signs: Last Vital Signs Temp 99.9 F 05/14/23 13:18 Pulse 109 H 05/14/23 13:18 Resp 16 05/14/23 13:18 BP 117/80 05/14/23 13:18 Pulse Ox 97 05/14/23 13:18 O2 Del Method Room Air 05/14/23 13:18 BMI result Body Mass Index 39.0 Febrile & tachycardic, vitals otherwide wnl. Const: General: cooperative, comfortable, no acute distress, alert, awake and ill appearing Orientation/consciousness: patient oriented x3 Limitations: no limitations HEENT: Other: + posterior oropharynx without erythema or edema. uvula midline. no tonsillar exudates. controlling secretions and speaking in complete sentences. Head: Yes normal to inspection, Yes normocephalic and Yes atraumatic Ears: hearing grossly normal bilaterally, external ears normal, TM's normal bilaterally, EAC's normal, mastoids normal and no periauricular adenopathy General nose exam: Normal external nose present and No nasal discharge present Face and sinus: Yes normal facial exam and Yes sinuses nontender Eyes: General: appearance normal, both eyes and all related structures Conjunctivae: conjunctivae normal Sclerae: sclerae normal Pupils: Equal, round and reactive pupils present Neck: Neck: Yes normal visual inspection, Yes full ROM, Yes no lymphadenopathy and Yes no meningeal signs Resp: Effort & Inspection: normal respiratory effort and able to speak in complete sentences Auscultation: clear to auscultation bilaterally Cardio: Rate: tachycardic Rhythm: regular rhythm GI: Inspection: Yes normal to inspection Palpation (GI): Soft to palpation and nontender Skin: General skin exam: no rashes or lesions noted Neuro: General: patient oriented x3, gait normal, moves all extremities and no meningeal signs Cranial nerves: Yes Equal, round and reactive pupils present Extrem: General: Yes normal to inspection and Yes no calf tenderness Course Course Course Narrative: 1132-- patient has tested positive for influenza A. Chest x-ray shows findings of acute bronchitis. She has received a dose of Decadron in the ED along with Tylenol. Lungs are cta b/l and breathing treatment is not indicated. She is still noted to be febrile to 101.1F. Will administer Toradol and repeat vitals. 1325-- patient now afebrile at 99.9F. Will send prednisone, Z-Slick, & Tessalon Perles to pharmacy. Discussed worrisome signs and symptoms of when to return to the ED. all questions answered at this time. Patient is agreeable disposition and stable for discharge. Medications Administered Discontinued Medications Generic Name Dose Route Start Last Admin Trade Name Freq PRN Reason Stop Dose Admin Acetaminophen 650 mg 05/14/23 09:14 05/14/23 09:21 Acetaminophen 325 Mg Tablet PO 05/14/23 09:15 650 mg ONCE ONE Administration Dexamethasone 6 mg 05/14/23 11:31 05/14/23 11:46 Dexamethasone 6 Mg Tablet PO 05/14/23 11:32 6 mg ONCE ONE Administration Ketorolac Tromethamine 30 mg 05/14/23 11:51 05/14/23 12:23 Ketorolac Tromethamine 30 Mg/Ml Vial IM 05/14/23 11:52 30 mg ONCE ONE Administration Medical Decision Making Medical Decision Making [facility] Narrative: 47 year old female with pmhx significant for hypothyroidism presents to the ED today for evaluation of fevers, body aches, headaches and cough x3 days. Patient initially noted to be febrile to 101.1F. She is tachycardic to 109 likely secondary to fever. Vitals otherwise WNL. Not hypoxic. Bilateral EACs and TMs WNL. Posterior oropharynx WNL. Actively coughing. Lungs are clear to auscultation bilaterally. Abdomen soft, ND/NT. No rebound or guarding. No calf tenderness bilaterally. No rashes. Clinical concern for viral syndrome, pneumonia, bronchitis, laryngitis. I have very low suspicion for pulmonary embolism. Unlikely pneumothorax, pleural effusion, strep throat, mono, [employer], retropharyngeal abscess, epiglottitis. Plan for serology, chest x-ray, and re- evaluation. Differential Diagnosis Differential Diagnoses: The differential diagnosis associated with the presentation includes as above. Admission/Observation Not indicated Lab Data MDM Lab Attestation statement: I reviewed the patient's lab results. as above Labs: Lab Results 05/14/23 Range/Units 09:18 COVID-19 (TERRY) Negative (Negative) COVID-19 Clin Com See Note Influenza Type A (MARGARITA) Positive A (Negative) Influenza Type B (MARGARITA) Negative (Negative) Influenza A & B Note See Note Independent Interpretation I performed an independent interpretation of an: Plain X-Ray Interpretation: I have personally reviewed chest x-ray and agree with radiologist's interpretation. Radiology Impression Discussion of test interpretation with radiology: I have reviewed the radiologist's reading. Radiologist Impression: XR chest 2V IMPRESSION: 1. No pneumonia. 2. Findings suggestive of bronchitis. Independent Historian Clinical information obtained from an independent historian. History obtained from or confirmed by: Spouse () External Record Review External record reviewed: Inpatient record Prescription Management I considered prescription management with: Pain Medication, Antibiotic and Other (steroid) Social Determinants Patient?s care significantly limited by Social Determinants of Health including: Other Social Determinant of Health Critical Care Time Critical Care Time Critical Care Time: No Discharge Plan Discharge Clinical Impression: Influenza A, Acute bronchitis Patient Disposition: Home, Self-Care Instructions: Influenza (ED), Flu Shot (Vaccine) for Adults (ED), Acute Bronchitis (ED) Additional Instructions: You tested positive for influenza A today. Your chest xray shows findings of bronchitis, which is inflammation of the airways within the lungs. Prednisone as a steroid that has been sent to your pharmacy. Take this as prescribed for the next 5 days to help with airway inflammation. You were given steroids in the ED today so begin prednisone tomorrow. A Z-Slick has been sent to your pharmacy. This is an antibiotic. Take this as prescribed over the next 5 days. Do not stop taking this early or skip any doses. Marline Mart have been sent to your pharmacy. Take these as needed for cough. Follow-up with your PCP as needed. If symptoms persist or worsen please return to the ED. In the case of an emergency call 911. Prescriptions: New prednisone 20 mg tablet 20 mg PO DAILY 5 Days Qty: 5 0RF azithromycin 250 mg tablet See Rx Instructions .ROUTE .COMPLEX Qty: 6 0RF Rx Instructions: For 250 mg dose pack: take 500 mg today (day 1), then 250 mg for 4 days (days 2-5) benzonatate 100 mg capsule 100 mg PO BID PRN (Reason: cough) Qty: 10 0RF No Action levothyroxine 137 mcg tablet 1 tab PO DAILY dexamethasone [Decadron] 4 mg tablet 8 mg PO DAILY Qty: 14 0RF doxycycline hyclate 100 mg tablet 100 mg PO BID Qty: 14 0RF Referrals: Physician,Unknown J [Primary Care Provider] - Stand Alone Forms: Work/School Release Interventions: ED Discharge Assessment Last Done: 05/14/23 13:41 Discharge Date/Time: 05/14/23 13:54
[2023-05-14] MEDS: dexAMETHasone 6 MG TABLET PO (11:46)
[2023-05-14] MEDS: Ketorolac Tromethamine 30 MG/ML VIAL IM (12:23)
[2023-05-14 13:18] VITALS: BP 117/80; PULSE 109; RESP 16; TEMP 37.7; O2SAT 97
== END 2023-05-14 13:54 | disposition home or self-care (01) ==
PROVIDERS: Emergency Provider Emergency Medicine
DX: R05.9 Cough, unspecified (principal); J20.9 Acute bronchitis, unspecified; R51.9 Headache, unspecified; J10.1 Influenza due to other identified influenza virus with other respiratory manifestations; E03.9 Hypothyroidism, unspecified; R00.0 Tachycardia, unspecified
CPT/HCPCS: 71046; 87502; 87635; 96372; 99284; J1885; J8540